=== PATIENT | female | born 1970 | race Caucasian/White ===

== ENCOUNTER 2017-06-24 18:32 | Emergency (ER) | payer OTHER ==
[2017-06-24 18:43] VITALS: BP 136/81
[2017-06-24] MEDS ORDERED: Albuterol 2.5 MG/3 ML NEB.SOL* (0.083%) INH ONE (18:50)
[2017-06-24] MEDS ORDERED: Ibuprofen TAB* 600 MG PO ONE (18:50)
--- NOTE | 2017-06-24 18:55 | UC ---
Respiratory Complaint HPI - HPI Summary HPI Summary: patient has had increased fever and body aches today, trouble taking deep breaths, she is a smoker, cough, fever, nasal congestion ans sore throat, hurts all over. - History of Current Complaint Chief Complaint: UCGeneralIllness Stated Complaint: COUGH Time Seen by Provider: 06/24/17 18:43 Hx Obtained From: Patient ?: No Onset/Duration: Sudden Onset, Lasting Hours Timing: Constant Severity Initially: Mild Severity Currently: Severe Aggravating Factors: Allergens, Exertion, Recumbent Position Alleviating Factors: Upright Position, Spontaneous Resolution Associated Signs And Symptoms: Positive: Dyspnea, Chills, Wheezing, URI, Nasal Congestion - Allergies/Home Medications Allergies/Adverse Reactions: Allergies Allergy/AdvReac Type Severity Reaction Status Date / Time No Known Allergies Allergy Verified 06/24/17 18:43 PMH/Surg Hx/FS Hx/Imm Hx Previously Healthy: Yes - Surgical History Surgical History: Yes Surgery Procedure, Year, and Place: hysterectomy. D&C x2 - Family History Known Family History: Negative: Cardiac Disease, Hypertension - Social History Alcohol Use: Occasionally Substance Use Type: None Smoking Status (MU): Light Every Day Tobacco Smoker Amount Used/How Often: 1/2 ppd Length of Time of Smoking/Using Tobacco: age 16 - 44 Have You Smoked in the Last Year: Yes Review of Systems Constitutional: Fever, Chills, Fatigue Skin: Negative Eyes: Negative ENT: Sore Throat, Ear Ache, Nasal Discharge, Sinus Congestion Respiratory: Shortness Of Breath, Cough Cardiovascular: Negative Gastrointestinal: Negative Genitourinary: Negative Motor: Negative Neurovascular: Negative Musculoskeletal: Arthralgia, Myalgia Neurological: Negative Psychological: Negative Is Patient Immunocompromised?: No All Other Systems Reviewed And Are Negative: Yes Physical Exam Triage Information Reviewed: Yes Appearance: Well-Nourished, Ill-Appearing, Pain Distress Vital Signs: Initial Vital Signs Temp 101.9 F 06/24/17 18:38 Pulse 117 06/24/17 18:38 Resp 17 06/24/17 18:38 BP 136/81 06/24/17 18:38 Pulse Ox 98 06/24/17 18:38 Vital Signs Reviewed: Yes Eye Exam: Normal Eyes: Positive: Conjunctiva Clear ENT: Positive: Pharyngeal erythema, Nasal drainage, TM bulging Dental Exam: Normal Neck exam: Normal Neck: Positive: Supple, No Lymphadenopathy Respiratory: Positive: Chest non-tender, Lungs clear, Normal breath sounds, No respiratory distress Cardiovascular Exam: Normal Cardiovascular: Positive: RRR, No Murmur, Pulses Normal Abdominal Exam: Normal Abdomen Description: Positive: Nontender, No Organomegaly, Soft Bowel Sounds: Positive: Present Musculoskeletal Exam: Normal Neurological Exam: Normal Psychological Exam: Normal Skin Exam: Normal UC Diagnostic Evaluation - Laboratory O2 Sat by Pulse Oximetry: 98 Respiratory Course/Dx - Course Course Of Treatment: hx obtained, exam performed ,meds reviewed, neb treatement given, rapid strep and flu obtained, both were negative. ibuprofen given for fever. - Differential Dx/Diagnosis Differential Diagnosis/HQI/PQRI: Asthma, Bronchitis, Laryngitis, Lower Resp Infection, SARS, Sinusitis, Other - influenza Provider Diagnoses: acute bronchitis. tobacco abuse. fever Discharge - Discharge Plan Condition: Stable Disposition: HOME Patient Education Materials: Acute Bronchitis (ED) Referrals: Pramod Pepe-MD Zev [Primary Care Provider] - Additional Instructions: 1. take the medication as prescribed. 2. Increase fluid intake and get plenty of rest 3. Continue with ibuprofen and tylenol for pain and fever.
== END 2017-06-24 19:20 | disposition home or self-care (01) ==
LOC: UCCORT 18:32
DX: J20.9 Acute bronchitis, unspecified (principal); R50.9 Fever, unspecified; F17.210 Nicotine dependence, cigarettes, uncomplicated
CPT/HCPCS: 87502; 87651; 99213; A9270-GY; G0463

== ENCOUNTER 2019-02-17 17:29 | Emergency (ER) | payer OTHER ==
[2019-02-17 18:39] VITALS: BP 144/89
--- NOTE | 2019-02-17 19:55 | UC ---
Complaint Female HPI - HPI Summary HPI Summary: 48-year-old female 48-year-old female comes in with a chief complaint of vaginal irritation. It's been going on for more than a week. Patient's primary care doctor and prescribed her metronidazole. The symptoms of not improved. Patient feels that the metronidazole made her anxious. No fevers or chills. She does have some burning with urination. No abdominal pain. Patient has had a hysterectomy but she still has her ovaries. - History Of Current Complaint Chief Complaint: UCGeneralIllness Stated Complaint: PERSONAL Time Seen by Provider: 02/17/19 19:18 Pain Intensity: 0 - Allergies/Home Medications Allergies/Adverse Reactions: Allergies Allergy/AdvReac Type Severity Reaction Status Date / Time No Known Allergies Allergy Verified 02/17/19 18:32 Home Medications: Home Medications NK [No Home Medications Reported] 02/17/19 [History Confirmed 02/17/19] PMH/Surg Hx/FS Hx/Imm Hx Previously Healthy: Yes - Surgical History Surgical History: Yes Surgery Procedure, Year, and Place: hysterectomy. D&C x2 - Family History Known Family History: Negative: Cardiac Disease, Hypertension - Social History Alcohol Use: Occasionally Substance Use Type: None Smoking Status (MU): Heavy Every Day Tobacco Smoker Amount Used/How Often: 1/2 ppd Length of Time of Smoking/Using Tobacco: age 16 - 44 Have You Smoked in the Last Year: Yes Review of Systems All Other Systems Reviewed And Are Negative: Yes Constitutional: Positive: Negative Skin: Positive: Negative Eyes: Positive: Negative ENT: Positive: Negative Respiratory: Positive: Negative Cardiovascular: Positive: Negative Gastrointestinal: Positive: Negative Genitourinary: Positive: Dysuria, Vaginal/Penile Itching Motor: Positive: Negative Neurovascular: Positive: Negative Musculoskeletal: Positive: Negative Neurological: Positive: Negative Psychological: Positive: Negative Is Patient Immunocompromised?: No Physical Exam Triage Information Reviewed: Yes Appearance: Well-Appearing, No Pain Distress, Well-Nourished Vital Signs: Initial Vital Signs Temp 98.6 F 02/17/19 18:33 Pulse 88 02/17/19 18:33 Resp 15 02/17/19 18:33 BP 144/89 02/17/19 18:33 Pulse Ox 99 02/17/19 18:33 Vital Signs Reviewed: Yes Eye Exam: Normal Eyes: Positive: Conjunctiva Clear Neck: Positive: Supple Respiratory: Positive: Lungs clear, Normal breath sounds, No respiratory distress Cardiovascular: Positive: RRR Abdomen Description: Positive: Nontender, Soft. Negative: CVA Tenderness (R), CVA Tenderness (L) Bowel Sounds: Positive: Present Pelvic Exam: Positive: External Exam Normal, Speculum Exam Normal Musculoskeletal Exam: Normal Musculoskeletal: Positive: Strength Intact, ROM Intact Neurological Exam: Normal Neurological: Positive: Alert, Muscle Tone Normal Psychological: Positive: Age Appropriate Behavior Skin Exam: Normal Complaint Female Dx - Course Course Of Treatment: The patient has a follow-up scheduled with her primary care physician on February. Overall the pelvic exam was normal. Patient's 48 she's had a hysterectomy but still has her ovaries. She may be having irritation secondary to menopause. No obvious signs of infection on exam. GC chlamydia Ava Gardnerella and Trichomonas are all pending. At this time since the metronidazole did not work and the patient said she's had Diflucan before that doesn't work were going to await the final results before deciding on any treatment otherwise the patient will follow up as scheduled with her primary care doctor on February 23, 2019. - Differential Dx/Diagnosis Provider Diagnosis: Vaginitis Discharge - Sign-Out/Discharge Documenting (check all that apply): Patient Departure All imaging exams completed and their final reports reviewed: No Studies - Discharge Plan Condition: Stable Disposition: HOME Patient Education Materials: Vaginitis (ED) Referrals: Cece Morris MD [Primary Care Provider] - Additional Instructions: FOLLOW UP WITH YOUR DOCTOR ON 02/23/19 SCHEDULED. GET RECHECKED SOONER IF YOUR CONDITION WORSENS OR ANY QUESTIONS OR CONCERNS. - Billing Disposition and Condition Condition: STABLE Disposition: Home
[2019-02-19 12:49] LABS: Neisseria gonorrhoeae (GC) RNA Negative (Negative)
[2019-02-19 13:14] LABS: Trichomonas vaginalis Result Negative (Negative)
== END 2019-02-17 20:12 | disposition home or self-care (01) ==
LOC: UCCORT 17:29
DX: N76.0 Acute vaginitis (principal); F17.210 Nicotine dependence, cigarettes, uncomplicated
CPT/HCPCS: 81003; 87086; 87480; 87491; 87510; 87591; 87661; 99212; G0463

== ENCOUNTER 2019-06-27 18:37 | Emergency (ER) | payer OTHER ==
[2019-06-27 18:51] VITALS: BP 135/92
--- NOTE | 2019-06-27 19:07 | UC ---
Throat Pain/Nasal Teddy HPI - HPI Summary HPI Summary: Pt went to the MD yesterday because her throat was burning. Pt had been taking Flonase but stopped yesterday. Pt was prescribed an allergy pill yesterday and eye drops for her allergies. Pt now coughing and is a "mess" - History of Current Complaint Chief Complaint: UCGeneralIllness Stated Complaint: COUGH Time Seen by Provider: 06/27/19 18:44 Hx Obtained From: Patient ?: No Onset/Duration: Sudden Onset, Lasting Days Severity: Moderate Pain Intensity: 0 Cough: Productive Associated Signs & Symptoms: Positive: Dysphagia, Sinus Discomfort, Nasal Discharge - Allergies/Home Medications Allergies/Adverse Reactions: Allergies Allergy/AdvReac Type Severity Reaction Status Date / Time No Known Allergies Allergy Verified 06/27/19 18:52 Home Medications: Home Medications Metoprolol Succinate [Metoprolol Succinate ER] 25 mg PO DAILY 06/27/19 [History Confirmed 06/27/19] PMH/Surg Hx/FS Hx/Imm Hx Previously Healthy: Yes - Surgical History Surgical History: Yes Surgery Procedure, Year, and Place: hysterectomy. D&C x2 - Family History Known Family History: Negative: Cardiac Disease, Hypertension - Social History Alcohol Use: Occasionally Substance Use Type: None Smoking Status (MU): Heavy Every Day Tobacco Smoker Amount Used/How Often: 1/2 ppd Length of Time of Smoking/Using Tobacco: age 16 - 44 Have You Smoked in the Last Year: Yes Review of Systems All Other Systems Reviewed And Are Negative: Yes Constitutional: Positive: Fatigue ENT: Positive: Sore Throat, Ear Ache, Nasal Discharge, Sinus Congestion Respiratory: Positive: Cough Neurological: Positive: Headache Is Patient Immunocompromised?: No Physical Exam Triage Information Reviewed: Yes Appearance: Well-Nourished, Ill-Appearing, Pain Distress Vital Signs: Initial Vital Signs Temp 99 F 06/27/19 18:47 Pulse 86 06/27/19 18:47 Resp 16 06/27/19 18:47 BP 135/92 06/27/19 18:47 Pulse Ox 100 06/27/19 18:47 Vital Signs Reviewed: Yes Eye Exam: Normal ENT: Positive: Pharyngeal erythema - with pnd, Nasal congestion, TM bulging, Sinus tenderness Dental Exam: Normal Neck exam: Normal Respiratory: Positive: Chest non-tender, Normal breath sounds, No respiratory distress, Wheezing, Inspiration Cardiovascular Exam: Normal Cardiovascular: Positive: RRR, No Murmur, Pulses Normal Abdominal Exam: Normal Bowel Sounds: Positive: Present Musculoskeletal Exam: Normal Neurological Exam: Normal Psychological Exam: Normal Skin Exam: Normal Throat Pain/Nasal Course/Dx - Course Course Of Treatment: hx obtained, exam performed ,meds reviewed, treated for sinusitis and educated about allergy symtpoms and relief - Differential Dx/Diagnosis Differential Diagnosis/HQI/PQRI: Otitis Media, Pharyngitis, Sinusitis, URI Provider Diagnosis: Sinusitis Discharge ED - Sign-Out/Discharge Documenting (check all that apply): Patient Departure All imaging exams completed and their final reports reviewed: No Studies - Discharge Plan Condition: Stable Disposition: HOME Prescriptions: Azithromycin TAB* [Zithromax TAB (Z-EDGAR) 250 mg #6 tabs] 250 mg PO DAILY #4 tab Patient Education Materials: Sinusitis (ED), Allergies (ED) Referrals: Colette Eid [Primary Care Provider] - Additional Instructions: 1. continue with the allergy medication 2. First dose of antibiotics was given today, continue for the next 4 days 3. INcrease fluids 4. Nasal saline spray and 5. Follow up as needed. - Billing Disposition and Condition Condition: STABLE Disposition: Home
[2019-06-27] MEDS ORDERED: Azithromycin TAB* 250 MG PO ONE (19:08)
== END 2019-06-27 19:18 | disposition home or self-care (01) ==
LOC: UCCORT 18:37
DX: J32.9 Chronic sinusitis, unspecified (principal); F17.210 Nicotine dependence, cigarettes, uncomplicated
CPT/HCPCS: 99212; A9270-GY; G0463